=== PATIENT | male | born 1965 | race Asian ===

== ENCOUNTER → 2023-12-12 | Day surgery (SDC) | payer OTHER ==
[~2023-12-12] MED LIST: FENTANYL CITRATE/PF 100MCG/2 ML INJ ONE; HYDROCODON-ACE1 EA11 PO; LACTATED RINGER'S 1,000 ML ONE; LIDOCAINE HCL 2% LOCAL INJ 5 ML SDV VIAL INJ ONE; MIDAZOLAM HCL 2 MG/2 ML VIAL ONE; PROPOFOL IV EMULSION 10 MG/ML 20 ML VIAL ONE
[2023-12-12 13:58] VITALS: TEMP 97.6
[2023-12-12 14:25] VITALS: BP 138/76; PULSE 76; RESP 16; O2SAT 97
== END | disposition home or self-care (01) ==
LOC: OR 10:34
PROVIDERS: ATTEND Internal Medicine Gastroenterology
DX: K21.9 Gastro-esophageal reflux disease without esophagitis (principal); K29.50 Unspecified chronic gastritis without bleeding; K22.9 Disease of esophagus, unspecified; G89.29 Other chronic pain
CPT/HCPCS: 43239; 93005; J2003; J2250